=== PATIENT | male | born 1990 | race Caucasian/White ===

== ENCOUNTER 2017-07-10 18:14 | Emergency (ER) | payer MEDICAID ==
[~2017-07-10] VITALS: Ht 185.4 cm; Wt 93.9 kg
[2017-07-10 18:20] VITALS: BP 153/87
[2017-07-10 21:00] VITALS: BP 123/76
== END 2017-07-10 21:00 | disposition home or self-care (01) ==
LOC: MED 18:14
DX: J06.9 Acute upper respiratory infection, unspecified (principal)
CPT/HCPCS: 99283

== ENCOUNTER 2021-06-15 22:19 | Emergency (ER) | payer MEDICAID ==
[~2021-06-15] VITALS: Ht 185.4 cm; Wt 104.3 kg
[2021-06-15 22:25] VITALS: BP 141/80
--- NOTE | 2021-06-15 22:28 | NUR ---
to tent ambulatory
--- NOTE | 2021-06-16 00:20 | NUR ---
JAMES, WENT TO SEE THE PATIENT IN TRIAGE, HES NOT THERE. PATIENT LEFT WITHOUT BEING SEEN BY DR. BARRAGAN. NO FURTHER CARE PROVIDED FOR PATIENT.
== END 2021-06-16 00:20 | disposition left against medical advice (07) ==
LOC: MED 22:19
DX: R06.02 Shortness of breath (principal); Z53.21 Procedure and treatment not carried out due to patient leaving prior to being seen by health care provider

== ENCOUNTER 2021-09-20 17:45 | Emergency (ER) | payer MEDICAID ==
[~2021-09-20] VITALS: Ht 185.4 cm; Wt 90.7 kg
[2021-09-20 18:00] VITALS: BP 151/95
[2021-09-20] MEDS ORDERED: LIDOCAINE MPF 2% 100 MG/5 ML VIAL INJ ONE (19:15)
[2021-09-20] MEDS ORDERED: cefTRIAXone 1,000 MG in LIDOCAINE MPF 1% 2.1 ML IM ONE (19:15)
--- NOTE | 2021-09-20 19:18 | NUR ---
AMBULATED TO BED #1
[2021-09-20] MEDS ORDERED: cefTRIAXone 1,000 MG VIAL ONE (19:41)
[2021-09-20] MEDS ORDERED: LIDOCAINE MPF 1% 5 ML ONE (19:42)
[2021-09-20] MEDS ORDERED: LIDOCAINE 2% 1000 MG/50 ML VIAL INJ ONE (19:43)
--- NOTE | 2021-09-20 20:00 | NUR ---
PT TOLERATED PROCEDURE WELL
--- NOTE | 2021-09-20 20:01 | NUR ---
31 Y O MALE BIB SELF FOR RT THIGH PAIN X1 DAYS. PT STATES HE NOTICED A PIMPLE A FEW DAYS AGO. THEN PAIN AND REDNESS STARTED LAST NIGHT . RT MID THIGH IS SWOLLEN AND WARM TO TOUCH. PT DENIES F/N/V/D; SKIN IS PINK/WARM/DRY; AAOX4 WITH EVEN AND STEADY GAIT; PT STATES PAIN 10/10 PMH: N/A ALLERGIES: NKA RX: N/A
[2021-09-20] MEDS ORDERED: CLIN300C2 PO (20:04)
[2021-09-20 20:20] VITALS: BP 145/91
--- NOTE | 2021-09-20 20:35 | NUR ---
Patient discharged with v/s stable. Written and verbal after care instructions given and explained. Patient alert, oriented and verbalized understanding of instructions. Ambulatory with steady gait. All questions addressed prior to discharge. ID band removed. Patient advised to follow up with PMD. Rx of CLINDMYOCIN given. Opportunity to ask questions provided and answered.
--- NOTE | 2021-09-20 20:55 | NUR ---
The patient's care was reviewed and supervised by Brigid Sharp RN.
== END 2021-09-20 20:35 | disposition home or self-care (01) ==
LOC: MED 17:45
DX: L02.415 Cutaneous abscess of right lower limb (principal); L03.115 Cellulitis of right lower limb; Z79.899 Other long term (current) drug therapy
CPT/HCPCS: 10060; 96372; 99283; J0696; J2001

== ENCOUNTER 2021-09-22 19:55 | Emergency (ER) | payer MEDICAID ==
[~2021-09-22] VITALS: Ht 185.4 cm; Wt 90.7 kg
[~2021-09-22 19:55] MED LIST: CLIN300C2 PO
[2021-09-22 20:08] VITALS: BP 147/89
--- NOTE | 2021-09-22 20:15 | NUR ---
AMBULATED TO BED 3 FROM TRIAGE
--- NOTE | 2021-09-22 20:25 | NUR ---
31 Y/O MALE BIBS FOR RECHECK OF PREVIOUS I&D. PT AMBULATED TO BED, UNLABORED BREATHING, NO SIGNS OF INFECTION.
--- NOTE | 2021-09-22 20:30 | NUR ---
RADHA NELSON EXAMINED PT, EMT REDRESSED WOUND. PT TOLERATED WELL.
--- NOTE | 2021-09-22 20:44 | NUR ---
Patient discharged with v/s stable. Written and verbal after care instructions given and explained. Patient verbalized understanding. Ambulatory with steady gait. All questions addressed prior to discharge. Advised to follow up with PMD. VSS, A/OX4, UNLABORED BREATHING, AMBULATORY, AND CALM DEMEANOR. NO NURSING INTERVENTIONS NEEDED.
[2021-09-22 20:45] VITALS: BP 147/89
== END 2021-09-22 20:43 | disposition home or self-care (01) ==
LOC: MED 19:55
DX: L02.415 Cutaneous abscess of right lower limb (principal); Z48.01 Encounter for change or removal of surgical wound dressing; Z79.2 Long term (current) use of antibiotics
CPT/HCPCS: 99281